=== PATIENT | female | born 1985 | race Caucasian/White ===

== ENCOUNTER 2025-02-08 16:52 | Emergency (ER) | payer OTHER, SELFPAY ==
[2025-02-08 17:20] VITALS: BP 109/65; PULSE 65; RESP 18; TEMP 36.8; O2SAT 100
--- NOTE | 2025-02-08 17:37 | ED_ITS ---
HPI - Skin/Abscess/Foreign Bdy General Chief complaint: Skin/Abscess/Foreign Body Stated complaint: rash on back Time Seen by Provider: 02/08/25 17:30 Source: patient and RN notes reviewed Mode of arrival: ambulatory Limitations: no limitations History of Present Illness HPI narrative: 39-year-old female presents Express Care complaining of rash to her right upper back. Patient for such a sunburn. Patient noticed the rash proximally for days ago. Patient says she felt burning and tingling on the right upper back followed by a pruritic rash is irritated by touching her shirt. Patient did have chickenpox as a child. She has not tried anything [id number] help with symptoms. Patient denies any other rash elsewhere patient denies any fevers, body aches, chills, nausea vomiting, diarrhea, any other symptoms. Related Data Home Medications ?Medication ?Instructions ?Recorded ?Confirmed ?Last Taken ?Type atorvastatin 10 mg tablet mg 02/08/25 Unknown History bupropion HCl 300 mg 24 hr tablet, mg PO 02/08/25 Unknown History extended release drospirenone (contraceptive) 4 mg 02/08/25 Unknown History (28) tablet (Slynd) escitalopram oxalate 10 mg tablet mg 02/08/25 Unknown History tirzepatide (weight loss) 2.5 mg subcut 02/08/25 Unknown History mg/0.5 mL subcutaneous pen injector (Zepbound) Allergies Allergy/AdvReac Type Severity Reaction Status Date / Time No Known Drug Allergies Allergy none Verified 02/08/25 17:34 Review of Systems Review of Systems: CONSTITUTIONAL: Denies fever, chills, or sweats. EYES: Denies visual changes, redness, or discharge. ENT: Denies rhinorrhea, congestion, sore throat, or otalgia. CARDIOVASCULAR: Denies chest pain, palpitations, or edema. RESPIRATORY: Denies cough or dyspnea. GASTROINTESTINAL: Denies abdominal pain, nausea, vomiting, or diarrhea. GENITOURINARY: Denies dysuria or hematuria. SKIN: Positive for rash and itching. MUSCULOSKELETAL: Denies back pain, joint pain, or myalgia. NEUROLOGIC: Denies headache, numbness, or weakness. PSYCHIATRIC: Denies anxiety or depression. All other systems reviewed are negative, except as documented in HPI. PMFSH Comments At the time of my signature, I reviewed and agree with the nursing past medical, surgical, social, and family history. There is no relevant family history pertinent to the patient complaint. Exam Narrative: GENERAL: This is a well-nourished, well-developed adult, in no apparent distress. They are non ill-appearing, nontoxic appearing. HEAD: normocephalic, atraumatic. EYES: Sclera clear/white. Conjunctiva normal. Vision is grossly intact. Extraocular movements intact EARS: External ears normal, Hearing grossly intact. NOSE: External nose normal THROAT: Mucous membranes moist, NECK: Neck supple, CARDIOVASCULAR: Regular rate and rhythm RESPIRATORY: Respiratory rate normal, respiratory effort nonlabored, no respiratory distress SKIN: Erythematous papular/vesicular pruritic rash to the right upper back that follows a dermatome. Rashes does not cross the midline. No exudate, no area of fluctuance, no induration. Rash is nontender to palpate. NEURO: awake, alert, and oriented to person, place and time. There were no obvious focal neurologic abnormalities. EXTREMITIES: No joint tenderness, effusion, or edema noted. Course Course Emergency Course: Portions of this record may have been created with voice recognition software Level of Care: Express Care Visit Vital Signs Vital signs: Vital Signs Temperature 98.3 F 02/08/25 17:20 Pulse Rate 65 02/08/25 17:20 Respiratory Rate 18 02/08/25 17:20 Blood Pressure 109/65 02/08/25 17:20 Pulse Oximetry 100 02/08/25 17:20 Oxygen Delivery Room Air 02/08/25 17:20 Temperature 98.3 F 02/08/25 17:20 Pulse Rate 65 02/08/25 17:20 Respiratory Rate 18 02/08/25 17:20 Blood Pressure 109/65 02/08/25 17:20 Pulse Oximetry 100 02/08/25 17:20 Oxygen Delivery Room Air 02/08/25 17:20 Reviewed MDM - Skin/Abscess/Foreign Bdy MDM Narrative Medical decision making narrative: Patient likely has shingles. Will Prescribe valacyclovir. Discussed physical exam findings. Advised supportive measures and signs/symptoms to go to the ER. Pt is appropriate for outpt treatment and f/u. Differential Diagnosis Differential diagnosis: Likely herpes zoster, cellulitis, eczema and contact dermatitis Critical Care Time Critical Care Time Critical Care Time: No Discharge Plan Discharge Clinical Impression: Herpes zoster Qualifiers: Herpes zoster complications: unspecified herpes zoster complication Qualified Code(s): B02.8 - Zoster with other complications Patient Disposition: Home Condition: Stable Instructions: Antibiotic Form, Shingles (ED) Additional Instructions: Take the valacyclovir as directed. It is likely of shingles. This is normally a no self-limiting condition will resolve within 7-10 days. Your are no longer contagious once the lesions have scabbed over. Tylenol or ibuprofen as needed for pain. Follow-up PCP in 3-5 days. Developed worsening redness, swelling, pain, fevers, vision problems, eye pain, ear pain, hearing issues, or any other concerns please go to the ER immediately. Patient Language: Tristanian Prescriptions: New valacyclovir 1 gram tablet 1,000 mg PO TID 7 Days Qty: 21 0RF No Action atorvastatin 10 mg tablet escitalopram oxalate 10 mg tablet bupropion HCl 300 mg tablet extended release 24 hr PO Slynd 4 mg (28) tablet Zepbound 2.5 mg/0.5 mL pen injector SUBCUT Follow-up/Referrals: Anthony,ALFONSO Chaney [Primary Care Provider] - Time of Disposition: 17:34
== END 2025-02-08 17:41 | disposition home or self-care (01) ==
PROVIDERS: PCP Physician Assistant
DX: B02.8 Zoster with other complications (principal); E78.00 Pure hypercholesterolemia, unspecified; F32.A Depression, unspecified
CPT/HCPCS: 99213; G0463